=== PATIENT | female | born 1980 | race Caucasian/White ===

== ENCOUNTER 2016-12-05 10:22 | Emergency (ER) | payer OTHER ==
--- NOTE | 2016-12-05 10:25 | EDPHY ---
H & P HPI/ROS: HPI CHIEF COMPLAINT: Racing Heart, Anxious HISTORY OF PRESENT ILLNESS: This patient very pleasant 36-year-old female she does have significant past medical history for celiac disease, IBS, vertigo she presents to the emergency room stating that she feels her heart racing. Of note she tells me she was at [facility] recently was diagnosed with a low potassium in dehydration after diarrheal illness. She states she was also at that time discharged and diagnosed with anxiety. She presents emergency room today after she woke up feeling not well fatigue, racing heart. She tells me hurts been racing and 120s at home. She just moved to [place] from [place] 2 weeks ago. She is unemployed she is residing with her sister. She denies pleuritic pain, chest pain she does endorse some shortness of breath. Denies abdominal pain. Denies headache or neck pain. Denies recent illness except for diarrhea, denies fever. She states she decided come the emergency room due to feeling very lightheaded and racing heart. No history of DVT or PE. Not on control. She states she had a similar episode when she went to [facility] last week diagnosis dehydration, low potassium. As well as anxiety. Upon arrival here in emergency room she is noted to be tachycardic in the 120 she is anxious. She tells me she feels anxious. She denies pain anywhere. Past Medical History: Celiac disease, IBS, vertigo, iron deficiency anemia Past Surgical History: Appendectomy Social History: Denies daily use of drugs alcohol tobacco, unemployed, recently moved from [place] to [place] 2 weeks ago. Living with her sister. Family History: Noncontributory ROS REVIEW OF SYSTEMS: A comprehensive 10 point review of systems is otherwise negative aside from elements mentioned in the history of present illness. Exam Constitutional appears anxious, triage nursing summary reviewed, vital signs reviewed, awake/alert. Eyes normal conjunctivae and sclera, EOMI, PERRLA. HENT normal inspection, atraumatic, moist mucus membranes, no epistaxis, neck supple/ no meningismus, no raccoon eyes. Respiratory clear to auscultation bilaterally, normal breath sounds, no respiratory distress, no wheezing. Cardiovascular not tachycardic without murmur, no rub, regular rhythm, no murmur, no edema, distal pulses normal. Gastrointestinal soft, non-tender, no rebound, no guarding, normal bowel sounds, no distension, no pulsatile mass. Genitourinary no CVA tenderness. Musculoskeletal no midline vertebral tenderness, full range of motion, no calf swelling, no tenderness of extremities, no meningismus, good pulses, neurovascularly intact. Skin pink, warm, & dry, no rash, skin atraumatic. Neurologic awake, alert and oriented x 3, AAOx3, moves all 4 extremities equally, motor intact, sensory intact, CN II-XII intact, normal cerebellar, normal vision, normal speech. Psychiatric anxious Heme/Lymph/Immune no lymphadenopathy. Differential Diagnosis: Includes but not limited to in a particular order dehydration, electrolyte disturbance, infection, thyroid disorder, cardiac arrhythmia, pulmonary embolism, pneumonia, pneumothorax, doubt acute coronary syndrome, acute anxiety Medical Decision Making: Plan for this patient IV establishment, IV fluid bolus , 0.5 mg IV Ativan to see if this helps with anxiety and tachycardia, check blood work including electrolytes, D-dimer, EKG, troponin, chest x-ray. Re- evaluate. Re-evaluation: EKG interpretation by me on record in [employer] system. Impression time of EKG 10:20 a.m., this is sinus tachycardia rate of 119. Q-waves present lead to 3 AVF most likely normal variant no ST elevation. No TX segment depression. No signs of cardiac arrhythmia on this EKG. Narrow QRS. No prolonged intervals. No signs of WPW or Brugada. No prolonged QT syndrome. Unremarkable EKG except for the tachycardia. 1143AM: Re-evaluation at this time patient feeling much better after 1 mg IV Ativan. Heart rate down from 120s to 99. Re-examination this time she has no chest pain or shortness of breath she is resting comfortably. No acute distress. Feels much better after IV Ativan. Relaxed. Will repeat her EKG. Blood work is reassuring negative D-dimer negative troponin, TSH normal. Electrolytes are appropriate. No high white count. Chest x-ray reviewed shows nothing acute. EKG interpretation by me on record in [employer] system. Impression this is a repeat EKG time of EKG 11:57 a.m., this is sinus tachycardia 106 again Q-wave seen in to 3 AVF normal variant. Otherwise unremarkable EKG I do not appreciate any acute ischemia signs of cardiac arrhythmia prolonged intervals. This EKG is improved after IV Ativan. 1215PM:" Heart rate at this time 99. 1257PM: Re-evaluation at this time patient resting comfortably no acute distress. Denies chest pain shortness of breath denies headache. Feels better after IV Ativan. Will allowed to go home with a very limited supply of Ativan. She understands return emergency room she develops worsening symptoms includes chest pain, shortness of breath, very fast heart rate or she feels unwell. Follow up with primary care doctor. I believe presentation here today is clinically indicative of an acute anxiety. She responded very well to IV Ativan. Source: Patient Constitutional: Initial Vital Signs Temperature (C) 36.7 C 12/05/16 10:27 Heart Rate 125 H 12/05/16 10:27 Respiratory Rate 18 12/05/16 10:27 Blood Pressure 134/107 H 12/05/16 10:27 O2 Sat (%) 98 12/05/16 10:27 O2 Delivery Mode Nasal Cannula O2 (L/minute) 2 Allergies/Adverse Reactions: No Known Allergies Allergy (Unverified 12/05/16 10:34) Home Medications: Medication Instructions Recorded IRON 12/05/16 LORazepam [Ativan] 1 mg PO DAILY #7 tablet 12/05/16 [place]-3 12/05/16 Medical Decision Making - Diagnostics Imaging Results: Imaging Impressions Chest X-Ray 12/05/16 10:33 Impression: No acute findings in the chest - Data Points Laboratory Results: Laboratory Results 12/05/16 10:39 12/05/16 10:39 12/05/16 12/05/16 12/05/16 10:39 10:39 10:39 WBC RBC Hgb Hct MCV MCH MCHC RDW Plt Count MPV Neut % (Auto) Lymph % (Auto) Becker % (Auto) Eos % (Auto) Baso % (Auto) Nucleat RBC Rel Count Absolute Neuts (auto) Absolute Lymphs (auto) Absolute Monos (auto) Absolute Eos (auto) Absolute Basos (auto) Absolute Nucleated RBC Immature Gran % Immature Gran # PT 12.9 SEC SEC (12.0-15.0) INR 1.00 (0.83-1.16) APTT 34.8 SEC SEC (23.0-38.0) D-Dimer < 0.27 ug/mLFEU ug/mLFEU (0.00-0.50) Sodium 143 mEq/L mEq/L (134-144) Potassium 3.9 mEq/L mEq/L (3.5-5.2) Chloride 105 mEq/L mEq/L (97-110) Carbon Dioxide 22 mEq/l mEq/l (22-31) Anion Gap 16 mEq/L mEq/L (8-16) BUN 13 mg/dL mg/dL (7-23) Creatinine 0.8 mg/dL mg/dL (0.6-1.0) Estimated GFR > 60 Glucose 124 mg/dL H mg/dL (70-100) Calcium 9.9 mg/dL mg/dL (8.5-10.4) Magnesium 1.9 mg/dL mg/dL (1.6-2.3) Total Bilirubin 0.7 mg/dL mg/dL (0.1-1.4) Conjugated Bilirubin 0.2 mg/dL mg/dL (0.0-0.5) Unconjugated Bilirubin 0.5 mg/dL mg/dL (0.0-1.1) AST 20 IU/L IU/L (14-46) ALT 30 IU/L IU/L (9-52) Alkaline Phosphatase 58 IU/L IU/L (38-126) Creatine Kinase 57 IU/L IU/L (0-156) CK-MB (CK-2) Fraction 0.38 ng/mL ng/mL (0-4.55) Troponin I < 0.012 ng/mL ng/mL (0-0.034) NT-Pro-B Natriuret Pep 37 pg/mL pg/mL (0-125) Total Protein 7.3 g/dL g/dL (6.3-8.2) Albumin 4.8 g/dL g/dL (3.5-5.0) Lipase 216.0 IU/L IU/L (23-300) TSH 1.570 uIU/mL uIU/mL (0.465-4.680) Beta HCG, Qual NEGATIVE 12/05/16 10:39 WBC 5.52 10^3/uL 10^3/uL (3.80-9.50) RBC 4.63 10^6/uL 10^6/uL (4.18-5.33) Hgb 12.9 g/dL g/dL (12.6-16.3) Hct 38.4 % % (38.0-47.0) MCV 82.9 fL fL (81.5-99.8) MCH 27.9 pg pg (27.9-34.1) MCHC 33.6 g/dL g/dL (32.4-36.7) RDW 13.2 % % (11.5-15.2) Plt Count 320 10^3/uL 10^3/uL (150-400) MPV 11.4 fL fL (8.7-11.7) Neut % (Auto) 52.7 % % (39.3-74.2) Lymph % (Auto) 34.4 % % (15.0-45.0) Becker % (Auto) 8.0 % % (4.5-13.0) Eos % (Auto) 3.8 % % (0.6-7.6) Baso % (Auto) 0.9 % % (0.3-1.7) Nucleat RBC Rel Count 0.0 % % (0.0-0.2) Absolute Neuts (auto) 2.91 10^3/uL 10^3/uL (1.70-6.50) Absolute Lymphs (auto) 1.90 10^3/uL 10^3/uL (1.00-3.00) Absolute Monos (auto) 0.44 10^3/uL 10^3/uL (0.30-0.80) Absolute Eos (auto) 0.21 10^3/uL 10^3/uL (0.03-0.40) Absolute Basos (auto) 0.05 10^3/uL 10^3/uL (0.02-0.10) Absolute Nucleated RBC 0.00 10^3/uL 10^3/uL (0-0.01) Immature Gran % 0.2 % % (0.0-1.1) Immature Gran # 0.01 10^3/uL 10^3/uL (0.00-0.10) PT INR APTT D-Dimer Sodium Potassium Chloride Carbon Dioxide Anion Gap BUN Creatinine Estimated GFR Glucose Calcium Magnesium Total Bilirubin Conjugated Bilirubin Unconjugated Bilirubin AST ALT Alkaline Phosphatase Creatine Kinase CK-MB (CK-2) Fraction Troponin I NT-Pro-B Natriuret Pep Total Protein Albumin Lipase TSH Beta HCG, Qual Medications Given: Discontinued Medications Sodium Chloride (Ns) 1,000 mls @ 0 mls/hr IV ONCE ONE; Wide Open PRN Reason: Protocol Stop: 12/05/16 10:34 Last Admin: 12/05/16 10:52 Dose: 1,000 mls Lorazepam (Ativan Injection) 0.5 mg IVP EDNOW ONE Stop: 12/05/16 10:35 Last Admin: 12/05/16 10:53 Dose: 0.5 mg Lorazepam (Ativan Injection) 1 mg IVP EDNOW ONE Stop: 12/05/16 10:58 Last Admin: 12/05/16 11:16 Dose: 1 mg Departure - Departure Disposition: Home, Routine, Self-Care Clinical Impression: Anxiety Condition: Good Instructions: Anxiety (ED) Additional Instructions: 1. Return emergency room if you have any worsening symptoms questions or concerns includes worsening anxiety. Prescriptions: LORazepam [Ativan] 1 mg PO DAILY #7 tablet
--- NOTE | 2016-12-05 10:30 | CPEKG ---
Heart Rate: 119 RR Interval: 504 P-R Interval: 132 QRSD Interval: 76 QT Interval: 304 QTC Interval: 428 P [place]: 86 QRS [place]: 63 T Wave [place]: 29 EKG Severity - ABNORMAL ECG - EKG Impression: SINUS TACHYCARDIA EKG Impression: BIATRIAL ABNORMALITIES EKG Impression: BORDERLINE Q WAVES IN INFERIOR LEADS EKG Impression: INFERIOR Q WAVES, PROBABLY NORMAL VARIATION Electronically Signed By: Joe Bright 10-Dec-2016 10:58:09
[2016-12-05] MEDS ORDERED: NS 1,000 ML IV ONE (10:33)
[2016-12-05 10:34] VITALS: TEMP 98.1
[2016-12-05] MEDS ORDERED: LORazepam 2 MG/ML INJ IVP ONE ×2 (10:34→10:57)
[2016-12-05 10:42] LABS: % IMMATURE GRANULYOCYTES 0.2 % (0.0-1.1); ABSOLUTE IMMATURE GRANULOCYTES 0.01 10^3/uL (0.00-0.10); ADD DIFF? NO; ADD MORPH? NO; ADD SCAN? NO; ATYPICAL LYMPHOCYTE FLAG 20 (0-99); FRAGMENT RBC FLAG 0 (0-99); HEMATOCRIT 38.4 % (38.0-47.0); HEMOGLOBIN 12.9 g/dL (12.6-16.3); LEFT SHIFT FLG 0 (0-99); LIPEMIA HEMOLYSIS FLAG 80 (0-99); MEAN CELL HEMOGLOBIN 27.9 pg (27.9-34.1); MEAN CELL HEMOGLOBIN CONCENTR. 33.6 g/dL (32.4-36.7); MEAN CELL VOLUME 82.9 fL (81.5-99.8); MEAN PLATELET VOLUME 11.4 fL (8.7-11.7); PLATELET CLUMPS FLAG 10 (0-99); PLATELET COUNT 320 10^3/uL (150-400); RED BLOOD CELL COUNT 4.63 10^6/uL (4.18-5.33); RED CELL DISTRIBUTION WIDTH 13.2 % (11.5-15.2)
[2016-12-05 10:52] LABS: PROTIME(PATIENT) 12.9 SEC (12.0-15.0)
[2016-12-05 10:53] LABS: APTT 34.8 SEC (23.0-38.0)
[2016-12-05 10:58] LABS: ALANINE AMINOTRANSFERASE 30 IU/L (9-52); ALBUMIN 4.8 g/dL (3.5-5.0); ALKALINE PHOSPHATASE 58 IU/L (38-126); ANION GAP 16 mEq/L (8-16); ASPARTATE AMINOTRANSFERASE 20 IU/L (14-46); BILIRUBIN,TOTAL 0.7 mg/dL (0.1-1.4); BILIRUBIN-CONJUGATED 0.2 mg/dL (0.0-0.5); BILIRUBIN-UNCONJUGATED 0.5 mg/dL (0.0-1.1); CALCIUM 9.9 mg/dL (8.5-10.4); CARBON DIOXIDE 22 mEq/l (22-31); CHLORIDE 105 mEq/L (97-110); CREATININE 0.8 mg/dL (0.6-1.0); GLOMERULAR FILTRATION RATE > 60; GLUCOSE 124 mg/dL (70-100); MAGNESIUM 1.9 mg/dL (1.6-2.3); POTASSIUM 3.9 mEq/L (3.5-5.2); SODIUM 143 mEq/L (134-144); TOTAL PROTEIN 7.3 g/dL (6.3-8.2)
[2016-12-05 11:10] LABS: CREATINE KINASE-MB FRACTION 0.38 ng/mL (0-4.55)
[2016-12-05 11:31] LABS: TROPONIN I < 0.012 ng/mL (0-0.034)
--- NOTE | 2016-12-05 11:59 | CPEKG ---
Heart Rate: 106 RR Interval: 566 P-R Interval: 128 QRSD Interval: 76 QT Interval: 340 QTC Interval: 452 P [place]: 81 QRS [place]: 53 T Wave [place]: -6 EKG Severity - BORDERLINE ECG - EKG Impression: SINUS TACHYCARDIA EKG Impression: PROBABLE LEFT ATRIAL ABNORMALITY EKG Impression: INFERIOR Q WAVES, PROBABLY NORMAL VARIATION Electronically Signed By: Joe Bright 10-Dec-2016 10:55:54
[2016-12-05 12:00] VITALS: O2SAT 100
[2016-12-05 13:25] VITALS: BP 108/75; PULSE 110; RESP 16
== END 2016-12-05 13:26 | disposition home or self-care (01) ==
LOC: CED 10:22
DX: F41.9 Anxiety disorder, unspecified (principal); E86.9 Volume depletion, unspecified
CPT/HCPCS: 71010-PO; 80048-PO; 80076-PO; 82550-PO; 82553-PO; 83690-PO; 83735-PO; 83880-PO; 84443-PO; 84484-PO; 84703-PO; 85025-PO; 85378-PO; 85610-PO; 85730-PO; 96374; J2060